=== PATIENT | female | born 1980 | race African-American/Black ===

== ENCOUNTER 2017-02-22 10:52 | Day surgery (SDC) | payer MEDICAID ==
[2017-02-15 11:03] LABS: ABSOLUTE BASOPHILS # (AUTO) 0.1 10^3/uL (0.0-0.2); ABSOLUTE EOSINOPHILS # (AUTO) 0.2 10^3/uL (0.0-0.6); ABSOLUTE MONOCYTES (AUTO) 0.4 10^3/uL (0.1-1.4); ABSOLUTE NEUT (AUTO) 2.6 10^3/uL (1.7-8.2); HEMATOCRIT 43.5 % (36.0-47.0); HGB HCT DIFFERENCE -1.5; LYMPHOCYTES % (AUTO) 37.5 % (13-45); MEAN CORPUSCULAR HEMOGLOBIN 26.9 pg (27.0-33.4); MEAN CORPUSCULAR HGB CONC 32.1 g/dL (32.0-36.0); MEAN CORPUSCULAR VOLUME 84 fl (80-97); MONOCYTES % (AUTO) 7.4 % (3-13); RED BLOOD COUNT 5.19 10^6/uL (3.72-5.28); RED CELL DISTRIBUTION WIDTH 14.2 % (11.5-14.0); SEGMENTED NEUTROPHILS % (AUTO) 50.1 % (42-78); WHITE BLOOD COUNT 5.3 10^3/uL (4.0-10.5)
[2017-02-15 11:06] LABS: APPEARANCE,URINE SLIGHTLY-CLOUDY; BILIRUBIN,URINE NEGATIVE (NEGATIVE); GLUCOSE, URINE NEGATIVE (NEGATIVE); KETONES,URINE NEGATIVE (NEGATIVE); LEUKOCYTE ESTERASE,URINE NEGATIVE (NEGATIVE); NITRITE,URINE NEGATIVE (NEGATIVE); PROTEIN,URINE NEGATIVE (NEGATIVE); URINE SPECIFIC GRAVITY 1.015; UROBILINOGEN,URINE NEGATIVE mg/dL (<2.0)
[2017-02-15 11:32] LABS: ANION GAP 11 (5-19); BLOOD UREA NITROGEN 14 mg/dL (7-20); CALCIUM 9.4 mg/dL (8.4-10.2); CARBON DIOXIDE 24 mmol/L (22-30); CHLORIDE 106 mmol/L (98-107); CREATININE RESULT 0.88 mg/dL (0.52-1.25); GLUCOSE 91 mg/dL (75-110); POTASSIUM 4.6 mmol/L (3.6-5.0); SODIUM 140.9 mmol/L (137-145)
--- NOTE | 2017-02-15 17:55 | EKG REPORT ---
SEVERITY:- NORMAL ECG - SINUS RHYTHM : Confirmed by: Katelyn Vargas 15-Feb-2017 17:54:24
[~2017-02-22 10:52] MED LIST: CEFAZOLIN 2 GM/D5W RTU 2 GM/50 ML RTUPB IV PRN; LACTATED RINGERS 1000 ML IV PRN; LIDOCAINE 0.5% INJ-PF (5 MG/ML) 50 ML SDV SUBCUT PRN
[2017-02-22] MEDS ORDERED: BUPIVACAINE HCL 0.25% /EPINEPHRINE INJ/PF 30 ML SDV ONE (11:34)
[2017-02-22] MEDS ORDERED: BUPIVACAINE HCL 0.5 % INJ/PF 30 ML SDV ONE (11:34)
[2017-02-22] MEDS ORDERED: GLYCOPYRROLATE INJ 0.4 MG/2 ML VIAL ONE (11:43)
[2017-02-22] MEDS ORDERED: ROCURONIUM BROMIDE INJ 50 MG/5 ML VIAL IV ONE (11:43)
[2017-02-22] MEDS ORDERED: SUCCINYLCHOLINE CHLORIDE INJ 200 MG/10 ML VIAL ONE (11:43)
[2017-02-22] MEDS ORDERED: NEOSTIGMINE METHYLSULFATE 10 MG/10 ML VIAL ONE (11:43)
[2017-02-22] MEDS ORDERED: LIDOCAINE 2% INJ-PF (20 MG/ML) 10 ML AMPUL ONE (11:43)
[2017-02-22] MEDS ORDERED: PHENYLEPHRINE HCL INJ/PF 10 MG/1 ML SDV ONE (11:43)
[2017-02-22] MEDS ORDERED: METOCLOPRAMIDE HCL INJ/PF 10 MG/2 ML SDV ONE (11:43)
[2017-02-22] MEDS ORDERED: KETOROLAC TROMETHAMINE 60 MG/2 ML SDV ONE (12:00)
[2017-02-22] MEDS ORDERED: FENTANYL CITRATE INJ/PF 100 MCG/2 ML AMPUL ONE (12:00)
[2017-02-22] MEDS ORDERED: ACETAMINOPHEN 100 ML IV ONE (12:01)
[2017-02-22] MEDS ORDERED: MIDAZOLAM 2 MG/2 ML INJ ONE (12:01)
[2017-02-22] MEDS ORDERED: PROPOFOL INJ 200 MG/20 ML VIAL IV ONE (12:01)
[2017-02-22] MEDS ORDERED: ONDANSETRON HCL INJ/PF 4 MG/2 ML SDV ONE (12:02)
[2017-02-22] MEDS ORDERED: DEXAMETHASONE SOD PHOSPHATE INJ 4 MG/1 ML VIAL ONE (12:02)
[2017-02-22] MEDS ORDERED: ALBUTEROL SULFATE 0.083% NEB 2.5 MG/3 ML AMPUL NEB ONE ×2 (12:26→12:28)
[2017-02-22] MEDS ORDERED: FAMOTIDINE INJ/PF 20 MG/2 ML SDV IV ONE (12:27)
[2017-02-22] MEDS ORDERED: SCOPOLAMINE HYDROBROMIDE 1.5 MG PATCH.TD72 ONE (12:28)
[2017-02-22] MEDS ORDERED: RINGERS SOLUTION,LACTATED 1,000 ML IV ONE (13:00)
[2017-02-22] MEDS ORDERED: MEPERIDINE HCL/PF INJ 25 MG/1 ML DISP.SYRIN IV PRN (13:46)
[2017-02-22] MEDS ORDERED: ONDANSETRON HCL INJ/PF 4 MG/2 ML SDV IV PRN (13:46)
[2017-02-22] MEDS ORDERED: FENTANYL CITRATE INJ/PF 100 MCG/2 ML AMPUL IV PRN ×3 (13:46)
--- NOTE | 2017-02-22 14:21 | Operative Report ---
Operative Report DATE OF SURGERY: 02/22/17 PREOPERATIVE DIAGNOSIS: Left knee loose body. Medial meniscus tear. Medial plica syndrome POSTOPERATIVE DIAGNOSIS: Left knee medial plica syndrome no evidence of loose body of medial meniscus tear OPERATION: Left knee arthroscopic medial plica shelf excision SURGEON: CALLY JEWELL ANESTHESIA: GA TISSUE REMOVED OR ALTERED: Medial plica excised COMPLICATIONS: None ESTIMATED BLOOD LOSS: 10 mL INTRAOPERATIVE FINDINGS: As above PROCEDURE: Patient was brought to the operating room and successfully induced and intubated in a the supine position. Once the tube was secured the right lower extremity thigh tourniquet was applied and the left lower extremity was prepped and draped in a normal surgical fashion. Timeout was done identifying the left knee has a correct site. The extremity was held elevated for a couple minutes and then tourniquet was inflated at 300 mmHg 0.5% of Marcaine was injected into the anticipated portal sites. 11 blade was used to establish the anterolateral portal. Scope was introduced and the capsule was distended with sterile saline solution. Under direct visualization the anteromedial portal sites was established first by applying a spinal needle and then established with the 11 blade. Probe was introduced and a diagnostic scope was done. Immediately I saw excess tissue and large medial plica the cartilage was pristine in all 3 compartments. Both menisci's were intact without evidence of tear. Notch showed no loose body. I also looked in the posterior knee with no evidence of a loose body either. Suspect calcification to be within the ACL or PCL. At this point the only pathology noted was the medial plica with the excessive tissue that we proceeded to resect with a 4.0 mm shaver pictures were taken showing the pre-and post excision with a shaver. Range of motion of the knee was placed showing no tissue obstruction or catching. At this point the fluid from the knee was removed and instruments were removed. Both portal sites were closed with 3-0 nylon and covered with Xeroform 4 x 4 dressing and soft roll. Extremity was overwrapped with an Farhat bandage. Tourniquet was let down after 19 minutes and the drapes were removed. Patient was successfully extubated and transferred to PACU in stable condition.
[2017-02-22] MEDS ORDERED: OXYCODONE-ACETAMINOPHEN 5-325 MG TABLET PO PRN ×2 (14:24)
--- NOTE | 2017-02-22 14:24 | PDOC DISCHARGE SUMMARY ---
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 Patient instructed to keep dressing dry clean and intact for 4 days and then allowed to remove. At that point patient can shower and apply Band-Aids as needed. Patient can weight-bear as tolerated and do range of motion exercises as tolerated. Crutches for support and safety. Can wean crutches once stable on his feet. Patient instructed to call the office if patient develops fevers chills redness and drainage from the surgical sites. Prescriptions: Oxycodone HCl/Acetaminophen [Percocet 5-325 mg Tablet] 1 tab PO ASDIR PRN #25 tab PRN Reason: Discharge Diet: As Tolerated Respiratory Treatments at Home: Deep Breathing/Coughing Discharge Activity: No Driving - While on narcotic, Keep Legs Elevated, No Lifting/Push/Pulling, Slowly Increase Activity, Walk Frequently Home Care Assistance: None Needed Report the Following to Your Physician Immediately: Shortness of Breath, Increase in Pain, Fever over 101 Degrees, Unusual Bleeding, Redness, Swelling, Warmth, Drainage-Yellow, Drainage-[place], Drainage-Green, Drainage-Foul Smelling, Visual Disturbance
[2017-02-22] MEDS: FENTANYL CITRATE INJ/PF 100 MCG/2 ML AMPUL ONE ×2 (14:32→14:42)
[2017-02-22 16:30] VITALS: BP 110/67
== END 2017-02-22 16:35 | disposition home or self-care (01) ==
LOC: OROUT 10:52
PROVIDERS: ATTEND Orthopaedic Surgery
PROC: 0SBD4ZZ Excision of Left Knee Joint, Percutaneous Endoscopic Approach (ICD-10-PCS; principal; 2017-02-22 13:00)
DX: M67.52 Plica syndrome, left knee (principal); G89.29 Other chronic pain; M25.562 Pain in left knee
CPT/HCPCS: 93005; 36415; 85025; 81025; 80048; 81001; 93010; 29875; J2250; J3490 ×4; J1100; J1885; J3010; J2765; J2370; J0330; J2405; J2704; S0028; J0690; J0131; 1400